=== PATIENT | female | born 1995 | race Caucasian/White ===

== ENCOUNTER → 2019-03-09 | Outpatient (CLI) | payer OTHER ==
--- NOTE | 2019-03-09 15:11 | REP ---
ULTRASOUND RIGHT BREAST: Real-time sonographic evaluation of right breast performed in the region of a reported palpable lump at 12-o'clock, which has been noticed for the past one month. There is no family history of breast cancer. [facility].2%. Real-time sonographic evaluation of the right breast in the 12-o'clock regions demonstrates an oval solid appearing nodule with mixed hyperechoic echogenicity. It measures 9 x 5 x 6 mm. This probably represents a lipoma or hamartoma. No other cystic or solid nodule is seen in this region. IMPRESSION: ACR 3 probably benign. Solid appearing nodule at the site of the palpable lump at 12-o'clock right breast measures 9 x 5 x 6 mm. This probably represents lipoma or hamartoma given its increased echogenicity. Recommend followup ultrasound in 6 months. Electronically Signed by Griffin Smith MD 03/11/2019 11:00 P
== END ==
LOC: M RAD 13:45
PROVIDERS: ATTEND Physician Assistant
DX: R92.2 Inconclusive mammogram (principal); N63.10 Unspecified lump in the right breast, unspecified quadrant

== ENCOUNTER 2022-03-10 22:49 | Outpatient (CLI) | payer OTHER ==
[~2022-03-10] VITALS: Ht 162.6 cm; Wt 95.9 kg
[~2022-03-10 22:49] MED LIST: CYCL5TAB PO; MULTTAB20 PO; ONDA4TAB6 PO; VITATAB47 PO
[2022-03-10] MEDS ORDERED: ASPI81CH33 PO (23:22)
[2022-03-10] MEDS ORDERED: TYLE650T38 PO (23:22)
[2022-03-10 23:24] VITALS: BP 131/76
[2022-03-11 00:59] VITALS: BP 114/69
[2022-03-11] MEDS ORDERED: ACETAMINOPH W/CODEINE #3 TAB UD PO ONE (01:00)
== END 2022-03-11 01:10 | disposition home or self-care (01) ==
LOC: M LDO 22:49
PROVIDERS: ATTEND Obstetrics & Gynecology
DX: O30.043 Twin pregnancy, dichorionic/diamniotic, third trimester (principal); Z3A.00 Weeks of gestation of pregnancy not specified; O26.893 Other specified pregnancy related conditions, third trimester; R10.11 Right upper quadrant pain; O99.343 Other mental disorders complicating pregnancy, third trimester; F32.A Depression, unspecified; Z86.16 Personal history of COVID-19; Z79.82 Long term (current) use of aspirin; Z79.899 Other long term (current) drug therapy; Z88.0 Allergy status to penicillin
CPT/HCPCS: 59025; 76705; G0463

== ENCOUNTER 2022-04-01 13:52 | Outpatient (CLI) | payer OTHER ==
[~2022-04-01] VITALS: Ht 162.6 cm; Wt 96.4 kg
[~2022-04-01 13:52] MED LIST changes: +ASPI81CH33 PO; +TYLE650T38 PO
[2022-04-01 15:12] LABS: BASO % 0.4 % (0.0-1.0); EOS # 0.1 10^3/uL (0.0-0.5); EOS % 0.8 % (0.0-3.0); HEMATOCRIT 35.5 % (36.0-47.0); HEMOGLOBIN 12.1 g/dl (12.0-15.5); LYMPH # 1.5 10^3/uL (1.5-5.0); LYMPH % 14.3 % (24.0-44.0); MEAN CORPUSCULAR HGB CONC 34.1 g/dl (32.0-36.5); MEAN CORPUSCULAR VOLUME 93.9 fl (80.0-96.0); MONO # 0.7 10^3/uL (0.0-0.8); MONO % 6.6 % (2.0-8.0); NEUTROPHILS # 7.8 10^3/uL (1.5-8.5); NEUTROPHILS % 77.1 % (36.0-66.0); PLATELET COUNT, AUTOMATED 144 10^3/uL (150-450); RED BLOOD COUNT 3.78 10^6/uL (4.00-5.40); WHITE BLOOD COUNT 10.1 10^3/uL (4.0-10.0)
[2022-04-01 15:44] LABS: CREATININE,RANDOM URINE 80.9 MG/DL; TOTAL PROTEIN,RANDOM URINE 13.3 MG/DL (0.0-12.0)
[2022-04-01 15:47] LABS: ALBUMIN 2.7 GM/DL (3.2-5.2); ALT/SGPT 11 U/L (12-78); BILIRUBIN,TOTAL 0.3 MG/DL (0.2-1.0); BLOOD UREA NITROGEN 9 MG/DL (7-18); CALCIUM LEVEL 8.9 MG/DL (8.5-10.1); CARBON DIOXIDE LEVEL 18 MEQ/L (21-32); CHLORIDE LEVEL 110 MEQ/L (98-107); CREATININE FOR GFR 0.61 MG/DL (0.55-1.30); GLOMERULAR FILTRATION RATE > 60.0 (>60); GLUCOSE, FASTING 78 MG/DL (70-100); POTASSIUM SERUM 4.3 MEQ/L (3.5-5.1); SODIUM LEVEL 135 MEQ/L (136-145); TOTAL PROTEIN 5.8 GM/DL (6.4-8.2); URIC ACID 5.5 MG/DL (2.6-6.0)
[2022-04-01] MEDS ORDERED: BENA25CA4 PO ×2 (16:37)
[2022-04-01] MEDS ORDERED: HOME MED LIST COMPLETE! XX SCH (16:40)
[2022-04-05] MEDS ORDERED: FOLI1TAB11 PO (09:59)
== END 2022-04-01 16:30 | disposition home or self-care (01) ==
LOC: M LDO 13:52
PROVIDERS: ATTEND Obstetrics & Gynecology
DX: O30.043 Twin pregnancy, dichorionic/diamniotic, third trimester (principal); Z3A.36 36 weeks gestation of pregnancy; O26.893 Other specified pregnancy related conditions, third trimester; R51.9 Headache, unspecified; R10.11 Right upper quadrant pain; Z88.0 Allergy status to penicillin; Z91.018 Allergy to other foods
CPT/HCPCS: 36415; 59025; 80053; 82570; 84156; 84550; 85025; G0378; G0463

== ENCOUNTER 2022-04-06 06:55 | Inpatient (IN) | payer OTHER ==
[~2022-04-06] VITALS: Ht 162.6 cm; Wt 97.3 kg
[2022-04-06] VITALS (10 sets, daily range): BP systolic 102–130; BP diastolic 60–85
[~2022-04-06 06:55] MED LIST changes: +BENA25CA4 PO; +FOLI1TAB11 PO
[2022-04-06] MEDS ORDERED: LACTATED RINGER'S 1000 ML IV STA (07:36)
[2022-04-06] MEDS ORDERED: BICITRA 30ML SOLN UDC PO ONE (07:40)
[2022-04-06 07:58] LABS: HEMATOCRIT 35.4 % (36.0-47.0); MEAN CORPUSCULAR HEMOGLOBIN 31.6 pg (27.0-33.0); MEAN CORPUSCULAR HGB CONC 33.9 g/dl (32.0-36.5); MEAN CORPUSCULAR VOLUME 93.2 fl (80.0-96.0); PLATELET COUNT, AUTOMATED 132 10^3/uL (150-450); WHITE BLOOD COUNT 8.8 10^3/uL (4.0-10.0)
[2022-04-06] MEDS ORDERED: CLINDAMYCIN 900 MG in IV 1 EA IV ONE (08:00)
[2022-04-06] MEDS ORDERED: OMEG10002 PO (08:09)
[2022-04-06] MEDS ORDERED: HOME MED LIST COMPLETE! XX SCH (08:10)
[2022-04-06] MEDS ORDERED: GENTAMICIN 400 MG in D5W 100 ML IV ONE (09:00)
[2022-04-06] MEDS: LR 1,000 ML IV SCH ×2 (09:07→12:58)
[2022-04-06] MEDS ORDERED: MORPHINE PRES-FREE INJ 10 MG/10 ML VIAL As Ordered ONE (10:15)
[2022-04-06] MEDS ORDERED: OXYTOCIN INJ 10 UNITS/ML VIAL (J2590) As Ordered ONE ×2 (10:15→10:54)
[2022-04-06] MEDS ORDERED: ONDANSETRON 4MG 2ML VIAL As Ordered ONE ×2 (10:19→12:18)
[2022-04-06] MEDS ORDERED: **NOTE PATIENT COMMENT** MISC XX SCH (10:30)
[2022-04-06] MEDS ORDERED: METOCLOPRAMIDE INJ 10MG/2ML VIAL (J2765 PER 1) IV PRN (10:30)
[2022-04-06] MEDS ORDERED: fentaNYL 100 MCG/2 ML INJECTION IV PRN (10:30)
[2022-04-06] MEDS ORDERED: oxyCODONE 5MG TAB PO PRN ×2 (10:30→11:30)
[2022-04-06] MEDS ORDERED: diphenhydrAMINE 50MG/ML VIAL (J1200) IV PRN (10:30)
[2022-04-06] MEDS ORDERED: ONDANSETRON 4MG 2ML VIAL IV PRN (10:30)
[2022-04-06] MEDS ORDERED: NALOXONE INJ 0.4MG/1ML VIAL (J2310 PER 1MG) IV PRN ×2 (10:30)
[2022-04-06] MEDS ORDERED: MEPERIDINE INJ 25 MG/ML VIAL (J2175) IV PRN (10:30)
[2022-04-06] MEDS: SLF 3 ML SYR IV SCH ×2 (10:30→18:30)
[2022-04-06] MEDS ORDERED: HYDROMORPHONE HCL 0.5 MG/ 0.5 ML SYRINGE (J1170 PER 1) IV PRN (10:30)
[2022-04-06] MEDS ORDERED: ePHEDrine SULFATE 25 MG/5 ML(5MG/ML) SYRINGE As Ordered ONE (10:44)
[2022-04-06] MEDS ORDERED: PHENYLephrine 500MCG 5ML (100MCG/ML) SYRINGE As Ordered ONE (10:44)
[2022-04-06] MEDS ORDERED: KETOROLAC 60MG 2ML VIAL As Ordered ONE (10:57)
[2022-04-06] MEDS ORDERED: METOCLOPRAMIDE INJ 10MG/2ML VIAL (J2765 PER 1) As Ordered ONE (11:21)
[2022-04-06] MEDS ORDERED: SIMETHICONE 80MG CHEW TAB PO PRN (11:30)
[2022-04-06] MEDS ORDERED: OXYTOCIN DRIP 30 UNITS in IV 1 EA IV SCH (11:30)
[2022-04-06] MEDS ORDERED: RHOGAM 300 MCG (1500 IU) INJ (J2790) IM SCH (11:30)
[2022-04-06] MEDS ORDERED: OXYTOCIN 30 UNITS IN 0.9% NaCl 500ML IV BAG (J2590) As Ordered ONE (12:37)
[2022-04-06] MEDS ORDERED: PROMETHAZINE 25MG/ML 1ML VIAL IV ONE (13:30)
[2022-04-06] MEDS ORDERED: PROMETHAZINE 25MG/ML 1ML VIAL As Ordered ONE (13:38)
[2022-04-06] MEDS: PRENATAL VITAMINS CHEWABLE TABLET PO SCH (13:41)
[2022-04-06] MEDS: KETOROLAC 30 MG/ML 1ML VIAL IV SCH ×2 (17:15→23:16)
[2022-04-06] MEDS: DOCUSATE SODIUM 100MG CAPSULE PO SCH (21:24)
[2022-04-07 02:00] VITALS: BP 108/61
[2022-04-07 06:00] VITALS: BP 103/62
[2022-04-07] MEDS: SLF 3 ML SYR IV SCH (06:02)
[2022-04-07] MEDS: KETOROLAC 30 MG/ML 1ML VIAL IV SCH (06:03)
[2022-04-07 08:30] LABS: HEMATOCRIT 31.1 % (36.0-47.0); HEMOGLOBIN 10.1 g/dl (12.0-15.5); MEAN CORPUSCULAR HEMOGLOBIN 31.3 pg (27.0-33.0); MEAN CORPUSCULAR HGB CONC 32.5 g/dl (32.0-36.5); MEAN CORPUSCULAR VOLUME 96.3 fl (80.0-96.0); PLATELET COUNT, AUTOMATED 123 10^3/uL (150-450); RED BLOOD COUNT 3.23 10^6/uL (4.00-5.40); WHITE BLOOD COUNT 10.2 10^3/uL (4.0-10.0)
[2022-04-07] MEDS: PRENATAL VITAMINS CHEWABLE TABLET PO SCH (09:44)
[2022-04-07] MEDS: DOCUSATE SODIUM 100MG CAPSULE PO SCH ×2 (09:44→21:02)
[2022-04-07 10:00] VITALS: BP 107/65
[2022-04-07] MEDS: IBUPROFEN 800 MG TAB PO SCH ×2 (12:48→21:02)
[2022-04-07 14:00] VITALS: BP 111/65
[2022-04-07 18:00] VITALS: BP 110/74
[2022-04-07 22:07] VITALS: BP 120/62
[2022-04-08 02:03] VITALS: BP 116/70
[2022-04-08] MEDS: oxyCODONE 5MG TAB PO PRN ×2 (02:03→19:24)
[2022-04-08] MEDS: MOM 30ML SUSPENSION UDC PO PRN (02:06)
[2022-04-08] MEDS: IBUPROFEN 800 MG TAB PO SCH ×3 (05:22→21:05)
[2022-04-08 06:09] VITALS: BP 114/64
[2022-04-08] MEDS: DOCUSATE SODIUM 100MG CAPSULE PO SCH ×2 (08:06→21:05)
[2022-04-08] MEDS: PRENATAL VITAMINS CHEWABLE TABLET PO SCH (08:06)
[2022-04-08] MEDS ORDERED: MEASLES,MUMPS,RUBELLA VACCINE INJ (MMR-II) (90707) SC.IMMUN ONE (09:00)
[2022-04-08 18:00] VITALS: BP 113/79
[2022-04-09] MEDS: IBUPROFEN 800 MG TAB PO SCH (05:06)
[2022-04-09] MEDS ORDERED: IBUP80TA PO (05:28)
[2022-04-09] MEDS ORDERED: OXYC-517 PO (05:28)
[2022-04-09] MEDS ORDERED: COLA100C5 PO (05:28)
[2022-04-09] MEDS ORDERED: ACET1TAB55 PO (05:28)
[2022-04-09 06:00] VITALS: BP 133/87
[2022-04-09] MEDS: DOCUSATE SODIUM 100MG CAPSULE PO SCH (08:29)
[2022-04-09] MEDS: PRENATAL VITAMINS CHEWABLE TABLET PO SCH (08:29)
[2022-04-09] MEDS: MOM 30ML SUSPENSION UDC PO PRN (08:34)
== END 2022-04-09 12:35 | disposition home or self-care (01) | DRG 785 ==
LOC: M LDI 06:55 → EDSTATUS 09:30 → M OBS 14:15
PROVIDERS: ADMIT Obstetrics & Gynecology; ATTEND Obstetrics & Gynecology
PROC: 0UB70ZZ Excision of Bilateral Fallopian Tubes, Open Approach (ICD-10-PCS; 2022-04-06)
PROC: 10D00Z1 Extraction of Products of Conception, Low, Open Approach (ICD-10-PCS; principal; 2022-04-06 09:30)
DX: O30.043 Twin pregnancy, dichorionic/diamniotic, third trimester (principal); Z3A.37 37 weeks gestation of pregnancy; Z37.2 Twins, both liveborn; Z30.2 Encounter for sterilization; O36.5991 Maternal care for other known or suspected poor fetal growth, unspecified trimester, fetus 1

== ENCOUNTER 2022-09-29 08:42 | Emergency (ER) | payer OTHER ==
[~2022-09-29] VITALS: Ht 162.6 cm; Wt 89.7 kg
[~2022-09-29 08:42] MED LIST changes: +ACET1TAB55 PO; +COLA100C5 PO; +IBUP80TA PO; +OMEG10002 PO; +OXYC-517 PO
[2022-09-29] MEDS ORDERED: FLUORESCEIN OPHTH 1MG STRIP OD ONE (10:15)
[2022-09-29] MEDS ORDERED: TETRACAINE 0.5% OPHTH SOLN 4ML OD ONE (10:15)
[2022-09-29] MEDS ORDERED: ERYTHROMYCIN OPHTH OINT OD ONE (11:35)
[2022-09-29] MEDS ORDERED: IBUPROFEN 600MG TAB PO ONE (11:35)
[2022-09-29 12:20] VITALS: BP 121/88
== END 2022-09-29 12:23 | disposition home or self-care (01) ==
LOC: M ED 08:42
DX: S05.01XA Injury of conjunctiva and corneal abrasion without foreign body, right eye, initial encounter (principal); Z88.0 Allergy status to penicillin; Z91.018 Allergy to other foods; Z79.1 Long term (current) use of non-steroidal anti-inflammatories (NSAID); Z79.810 Long term (current) use of selective estrogen receptor modulators (SERMs); Z79.899 Other long term (current) drug therapy